=== PATIENT | female | born 1960 | race Two or more races ===

== ENCOUNTER 2018-11-14 23:16 | Emergency (ER) | payer MEDICARE ==
[~2018-11-14] VITALS: Ht 157.5 cm; Wt 90.7 kg
[2018-11-14 23:45] VITALS: BP 134/44
[2018-11-15] MEDS ORDERED: methylPREDNISolone SOD SUCC 125 MG/2 ML VL IM ONE (01:00)
== END 2018-11-15 01:42 | disposition home or self-care (01) ==
LOC: ER 23:16
DX: B02.9 Zoster without complications (principal)
CPT/HCPCS: 96372; 99283; J2930

== ENCOUNTER 2019-09-25 19:12 | Emergency (ER) | payer MEDICARE, MEDICAID ==
[~2019-09-25] VITALS: Ht 157.5 cm; Wt 86.2 kg
[2019-09-25] MEDS ORDERED: HYDROcodone-ACET 10/325MG TAB PO ONE (21:15)
[2019-09-25] MEDS ORDERED: BACLOFEN 10 MG TAB PO ONE (21:15)
[2019-09-25] MEDS ORDERED: LACTULOSE 20Gm/30ML SOLN PO ONE (21:30)
[2019-09-25] MEDS ORDERED: ONDANSETRON ODT 4 MG TAB PO ONE ×2 (22:00→22:15)
[2019-09-25 22:27] VITALS: BP 138/69
== END 2019-09-25 22:45 | disposition home or self-care (01) ==
LOC: EDBD 19:12 → ER 19:14
DX: M25.532 Pain in left wrist (principal); M62.838 Other muscle spasm; M25.562 Pain in left knee; K59.00 Constipation, unspecified; M54.5 Low back pain; M54.2 Cervicalgia; R51 Headache; W01.0XXA Fall on same level from slipping, tripping and stumbling without subsequent striking against object, initial encounter; Y93.89 Activity, other specified; Y92.89 Other specified places as the place of occurrence of the external cause; Y99.8 Other external cause status
CPT/HCPCS: 72040; 72100; 73100; 73562; 99284; Q0162

== ENCOUNTER 2020-09-07 20:00 | Emergency (ER) | payer MEDICAID, MEDICARE, OTHER ==
[~2020-09-07] VITALS: Ht 157.5 cm; Wt 95.3 kg
[2020-09-07 20:41] VITALS: BP 135/52
== END 2020-09-07 21:53 | disposition home or self-care (01) ==
LOC: ER 20:01
DX: J20.9 Acute bronchitis, unspecified (principal); Z20.828 Contact with and (suspected) exposure to other viral communicable diseases; Z87.891 Personal history of nicotine dependence; Z98.51 Tubal ligation status
CPT/HCPCS: 36415; 71045; 87426; 99284; U0003

== ENCOUNTER 2020-10-14 13:16 | Emergency (ER) | payer OTHER | END 2020-10-14 13:50 | disposition left against medical advice (07) | LOC: ER 13:16 | DX: R05 Cough (principal); Z53.21 Procedure and treatment not carried out due to patient leaving prior to being seen by health care provider ==

== ENCOUNTER 2022-01-31 07:01 | Emergency (ER) | payer OTHER ==
[~2022-01-31] VITALS: Ht 157.5 cm; Wt 90.7 kg
[2022-01-31 07:43] VITALS: BP 146/50
[2022-01-31] MEDS ORDERED: AZIT500T PO (07:47)
[2022-01-31] MEDS ORDERED: PROM1SOL4 PO (07:47)
== END 2022-01-31 07:57 | disposition home or self-care (01) ==
LOC: ER 07:01
DX: J02.9 Acute pharyngitis, unspecified (principal); J06.9 Acute upper respiratory infection, unspecified; Z87.891 Personal history of nicotine dependence
CPT/HCPCS: 71046

== ENCOUNTER 2022-03-17 19:58 | Emergency (ER) | payer OTHER ==
[~2022-03-17] VITALS: Ht 157.5 cm; Wt 95.3 kg
[~2022-03-17 19:58] MED LIST: AZIT500T PO; PROM1SOL4 PO
[2022-03-17 19:59] VITALS: BP 137/52
== END 2022-03-18 03:13 | disposition left against medical advice (07) ==
LOC: ER 19:58
DX: R05.9 Cough, unspecified (principal); R09.82 Postnasal drip; Z53.21 Procedure and treatment not carried out due to patient leaving prior to being seen by health care provider

== ENCOUNTER 2022-09-12 07:05 | Emergency (ER) | payer OTHER ==
[~2022-09-12] VITALS: Ht 157.5 cm; Wt 95.5 kg
[2022-09-12 07:18] VITALS: BP 148/56
[2022-09-12 07:55] LABS: Basophils # (auto) 0 10 ^3/uL (0-0.2); Basophils % (auto) 0.6 % (0.0-2.0); Eosinophils # (auto) 0.2 10 ^3/uL (0-0.8); Eosinophils % (auto) 2.9 % (0.0-7.0); Hematocrit 40.9 % (36.0-46.0); Hemoglobin 13.9 g/dL (12.2-16.2); Lymphocytes # (auto) 1.6 10 ^3/uL (0.4-5.4); Lymphocytes % (auto) 31.2 % (10.0-50.0); Mean Corpuscular Hemoglobin 31.6 pg (28.0-32.0); Monocytes # (auto) 0.3 10 ^3/uL (0-1.3); Monocytes % (auto) 6.3 % (0.0-12.0); Neutrophils # (auto) 3.1 10 ^3/uL (1.6-8.6); Nucleated Red Blood Cells % 0.1 %; Red Cell Distribution Width 13.1 % (11.8-14.3); White Blood Cell 5.2 10^3/uL (4.4-10.8)
[2022-09-12 08:30] LABS: Albumin 3.8 g/dL (3.4-5.0); Potassium 4.1 mmol/L (3.5-5.1)
[2022-09-12 08:35] LABS: Bilirubin, Total 0.6 mg/dL (0.2-1.0); Total Protein 7.7 g/dL (6.4-8.2)
[2022-09-12] MEDS ORDERED: LEVO-28 PO (09:32)
== END 2022-09-12 10:59 | disposition home or self-care (01) ==
LOC: ER 07:05
DX: J20.9 Acute bronchitis, unspecified (principal); I10 Essential (primary) hypertension; Z90.89 Acquired absence of other organs; Z90.710 Acquired absence of both cervix and uterus; Z87.891 Personal history of nicotine dependence
CPT/HCPCS: 36415; 71046; 80053; 85025; 85379; 93005

== ENCOUNTER 2022-12-01 01:06 | Emergency (ER) | payer OTHER ==
[~2022-12-01] VITALS: Ht 157.5 cm; Wt 95.5 kg
[~2022-12-01 01:06] MED LIST changes: +LEVO-28 PO
[2022-12-01 01:10] VITALS: BP 142/50
[2022-12-01] MEDS ORDERED: DexAMETHasone SOD PHOS 10MG/1ML VIAL INJ IM ONE (03:30)
== END 2022-12-01 03:52 | disposition home or self-care (01) ==
LOC: ER 01:09
DX: B34.9 Viral infection, unspecified (principal); M79.10 Myalgia, unspecified site; I10 Essential (primary) hypertension; Z87.891 Personal history of nicotine dependence; Z90.710 Acquired absence of both cervix and uterus; Z20.822 Contact with and (suspected) exposure to COVID-19; Z98.51 Tubal ligation status; Z88.1 Allergy status to other antibiotic agents
CPT/HCPCS: 36415; 87426; 87804; 96372; 99283; J1100

== ENCOUNTER 2023-01-25 00:47 | Emergency (ER) | payer OTHER ==
[~2023-01-25] VITALS: Ht 157.5 cm; Wt 98.8 kg
[2023-01-25 00:50] VITALS: BP 145/52
[2023-01-25 01:15] LABS: Basophils # (auto) 0 10 ^3/uL (0-0.2); Basophils % (auto) 0.8 % (0.0-2.0); Eosinophils # (auto) 0.3 10 ^3/uL (0-0.8); Eosinophils % (auto) 7.4 % (0.0-7.0); Hematocrit 35.9 % (36.0-46.0); Hemoglobin 12.9 g/dL (12.2-16.2); Lymphocytes # (auto) 1.1 10 ^3/uL (0.4-5.4); Lymphocytes % (auto) 30.1 % (10.0-50.0); Mean Corpuscular Hemoglobin 33.6 pg (28.0-32.0); Mean Corpuscular Hgb Conc. 35.8 g/dL (32.0-36.0); Mean Corpuscular Volume 93.9 fL (80.0-100.0); Monocytes # (auto) 0.4 10 ^3/uL (0-1.3); Monocytes % (auto) 11.1 % (0.0-12.0); Neutrophils # (auto) 1.8 10 ^3/uL (1.6-8.6); Neutrophils % (auto) 50.6 % (37.0-80.0); Nucleated Red Blood Cells % 0.2 %; Red Blood Cells 3.83 10^6/uL (4.0-5.20); White Blood Cell 3.6 10^3/uL (4.4-10.8)
[2023-01-25] MEDS ORDERED: ALBUTEROL SULF 2.5 MG/0.5ML(0.5%) NEB SOLN NEB ONE (01:15)
[2023-01-25] MEDS ORDERED: ALBUTEROL MEDNEB 2.5 mg/3ml NEB ONE (01:31)
[2023-01-25 01:33] LABS: Albumin 3.5 g/dL (3.4-5.0); BUN/Creatinine Ratio 27.5; Calcium 8.4 mg/dL (8.5-10.1)
[2023-01-25 01:42] LABS: Bilirubin, Total 0.3 mg/dL (0.2-1.0); Total Protein 6.6 g/dL (6.4-8.2)
== END 2023-01-25 05:17 | disposition left against medical advice (07) ==
LOC: ER 00:47
DX: R07.89 Other chest pain (principal); R05.9 Cough, unspecified; I10 Essential (primary) hypertension; Z90.710 Acquired absence of both cervix and uterus; Z90.89 Acquired absence of other organs; Z87.891 Personal history of nicotine dependence; Z79.2 Long term (current) use of antibiotics; Z79.899 Other long term (current) drug therapy; Z20.822 Contact with and (suspected) exposure to COVID-19
CPT/HCPCS: 36415; 71045; 80053; 84484; 85025; 87426; 87804; 93005; 94640

== ENCOUNTER 2024-03-01 09:47 | Emergency (ER) | payer OTHER ==
[~2024-03-01] VITALS: Ht 157.5 cm; Wt 99.2 kg
[~2024-03-01 09:47] MED LIST changes: -LEVO-28 PO; +LEVO500T91 PO
[2024-03-01 09:50] VITALS: TEMP 98.1
[2024-03-01 10:23] VITALS: BP 143/46; PULSE 65; RESP 18; O2SAT 97
[2024-03-01] MEDS ORDERED: CICL8SOL21 TOP (12:40)
[2024-03-01] MEDS: KETOROLAC TROMETH 30 MG/ML 1ML VIAL IM ONE (12:48)
== END 2024-03-01 12:42 | disposition home or self-care (01) ==
LOC: ER 09:47
DX: B35.1 Tinea unguium (principal); I10 Essential (primary) hypertension; Z98.51 Tubal ligation status; Z90.710 Acquired absence of both cervix and uterus; Z87.891 Personal history of nicotine dependence
CPT/HCPCS: 96372; 99283; J1885

== ENCOUNTER 2024-05-09 01:53 | Emergency (ER) | payer OTHER ==
[~2024-05-09] VITALS: Ht 157.5 cm; Wt 93.1 kg
[~2024-05-09 01:53] MED LIST changes: +CICL8SOL21 TOP
[2024-05-09 03:00] VITALS: BP 136/108; RESP 18; O2SAT 97
[2024-05-09 03:06] VITALS: PULSE 60
[2024-05-09] MEDS ORDERED: ZOFR4T PO (04:37)
[2024-05-09] MEDS ORDERED: HYDR-4902 PO (04:37)
[2024-05-09] MEDS: DexAMETHasone SOD PHOS 10MG/1ML VIAL INJ IM ONE (05:20)
[2024-05-09] MEDS: HYDROcodone-ACET 5/325MG TAB PO ONE (05:21)
[2024-05-09] MEDS: ONDANSETRON ODT 4 MG TAB PO ONE (05:21)
== END 2024-05-09 06:20 | disposition home or self-care (01) ==
LOC: ER 01:53
DX: M54.2 Cervicalgia (principal); M62.830 Muscle spasm of back; I10 Essential (primary) hypertension; Z90.710 Acquired absence of both cervix and uterus; Z98.51 Tubal ligation status; Z87.891 Personal history of nicotine dependence
CPT/HCPCS: 72040; 72070; 93005; 96372; 99284; J1100; Q0162

== ENCOUNTER 2025-04-23 09:02 | Emergency (ER) | payer OTHER, MEDICAID ==
[~2025-04-23] VITALS: Ht 157.5 cm; Wt 90.4 kg
[~2025-04-23 09:02] MED LIST changes: +HYDR-4902 PO; +ZOFR4T PO
--- NOTE | 2025-04-23 09:15 | ECG ---
[facility] Test Date: 2025-04-23 Test Time: 09:13:32 Pat Name: SAYDA WIGGINS Department: ER Room: Gender: F Medical Record Coder: AMELIE : 1960 Requested By: SUKI WEST Order Number: [id number] Reading MD: Bk Muse Measurements Intervals [place] Rate: 62 P: 49 AL: 149 QRS: 55 QRSD: 83 T: 37 QT: 406 QTc: 413 Interpretive Statements Sinus rhythm Low voltage, precordial leads Electronically Signed On 04-25-2025 12:06:52 PDT by Bk Muse Please click the below link to view image of tracing.
--- NOTE | 2025-04-23 09:45 | ED.PDOC ---
History of Present Illness HPI Comments 64-year-old female presents to the ER with prior medical history of hypertension; surgical history of BTL, hysterectomy, tonsillectomy in the chief complaint of chest pain. Patient reports on having aching chest pain with shortness a breath for the past seven days, patient notes on the chest pain worsening on the right side than left side. Patient updates the the left-sided chest pain started today. Denies chills, fever, N/V/D. No other associated symptoms, modifiers, recent injuries or sick contacts present at this time. Chief Complaint: Chest Pain Time Seen by MD: 09:15 Primary Care Provider: NOEMI Reviewed Notes: Nurses Notes, Medications, Allergies Allergies: Coded Allergies: NO KNOWN ALLERGIES (Unverified , 04/20/19) Home Meds Active Scripts Ondansetron Odt 4MG Tab (ZOFRAN PO) 4 Mg Tb, 1 TAB PO Q8HPRN PRN, #10 TAB as needed for nausea vomiting ODT TAB-DISSOLVE IN MOUTH, THEN SWALLOW Prov:CAYLA COHEN MILL CRANE OPERATOR 05/09/24 Hydrocodone-Acetaminophen (Hydrocodone Bitartrate/AC 5-325 mg) 1 Tab Tab, 1 TAB PO Q6HPRN PRN, #10 TAB as needed for pain Prov:CAYLA COHEN MILL CRANE OPERATOR 05/09/24 Ciclopirox (Ciclopirox Nail Lacquer) 8 % Merced, 1 APPLIC TOP BID for 90 Days, #6.6 ML 1 Refill Prov:DANGELO CRUZ MILL CRANE OPERATOR 03/01/24 Levofloxacin Hemihydrate (LEVOFLOXACIN) 500 Mg Tab, 500 MG PO DAILY for 5 Days, #5 MG Prov:SUKI WEST MD 09/12/22 Promethazine-Dm (Promethazine Dm 6.25-15 mg/5Ml) 1 Merced Merced, 1 MERCED PO TID, #150 ML Prov:MARINE ARAMBULA 01/31/22 Azithromycin (Zithromax) 500 Mg Tab, 500 MG PO DAILY for 5 Days, #5 TAB Prov:MARINE ARAMBULA 01/31/22 Information Source: Patient Mode of Arrival: Ambulatory Severity: Moderate Timing: Days Duration: Since onset, Days Prehospital treatment: None Past Medical History PAST MEDICAL HISTORY: HTN Surgical History: BTL, Hysterectomy, Tonsillectomy SCOUTS History: No Pertinent SCOUTS History Family History Family History: Reviewed,noncontributory to illness, Unknown Social History Smoker: Quit Greater Than 1 Year Alcohol: Unknown Drugs: Denies Drug Use Lives In: Home Constitutional: denies: chills, diaphoresis, fatigue, fever, malaise, sweats, weakness, others EENTM: denies: blurred vision, double vision, ear bleeding, ear discharge, ear drainage, ear pain, ear ringing, eye pain, eye redness, hearing loss, mouth pain, mouth swelling, nasal discharge, nose bleeding, nose congestion, nose pain, photophobia, tearing, throat pain, throat swelling, voice changes, others Respiratory: reports: shortness of breath; denies: cough, hemoptysis, orthopnea, SOB at rest, SOB with excertion, stridor, wheezing, others Cardiovascular: reports: chest pain; denies: dizzy spells, diaphoresis, Dyspnea on exertion, edema, irregular heart beat, left arm pain, lightheadedness, palpitations, PND, syncope, others Gastrointestinal: denies: abdomen distended, abdominal pain, blood streaked bowels, constipated, diarrhea, dysphagia, difficulty swallowing, hematemesis, melena, nausea, poor appetite, poor fluid intake, rectal bleeding, rectal pain, vomiting, others Genitourinary: denies: abnormal vagina bleeding, burning, dyspareunia, dysuria, flank pain, frequency, hematuria, incontinence, pain, , vagina discharge, urgency, others Neurological: denies: dizziness, fainting, headache, left sided numbness, left sided weakness, numbness, paresthesia, pre-existing deficit, right sided numbness, right sided weakness, seizure, speech problems, tingling, tremors, weakness, others Musculoskeletal: denies: back pain, gout, joint pain, joint swelling, muscle pain, muscle stiffness, neck pain, others Integumetry: denies: bruises, change in color, change in hair/nails, dryness, laceration, lesions, lumps, rash, wounds, others Allergic/Immunocompromised: denies: Difficulty Healing, Frequent Infections, Hives, Itching, others Hematologic/Lymphatic: denies: anemia, blood clots, easy bleeding, easy bruising, swollen glands, others Endocrine: denies: excessive hunger, excessive sweating, excessive thirst, excessive urination, flushing, intolerance to cold, intolerance to heat, unexplained weight gain, unexplained weight loss, others Psychiatric: denies: anxiety, bipolar disorder, depression, hopeless, panic disorder, schizophrenia, sleepless, suicidal, others All Other Systems: Reviewed and Negative Physical Exam General Appearance: Moderate Distress, Normal HEENT: Normal ENT Inspection, Pharynx Normal, TMs Normal Neck: Full Range of Motion, Non-Tender, Normal, Normal Inspection Respiratory: Chest Non-Tender, Lungs Clear, No Accessory Muscle Use, No Respiratory Distress, Normal Breath Sounds Cardiovascular: No Edema, No JVD, No Murmur, No Gallop, Normal Peripheral Pul ses, Regular Rate/Rhythm Breast Exam: Deferred Gastrointestinal: No Organomegaly, Non Tender, No Pulsatile Mass, Normal Bowel Sounds, Soft Genitalia: Deferred Pelvic: Deferred Rectal: Deferred Extremities: No calf tenderness, Normal capillary refill, Normal inspection, Normal range of motion, Non-tender, No pedal edema Musculoskeletal : Apperance: Normal Neurologic: Alert, lapel baster II-XII nml as Tested, No Motor Deficits, Normal Affect, Normal Mood, No Sensory Deficits Cerebellar Function: Normal Reflexes: Normal Skin: Dry, Normal Color, Warm Peripheral Pulses: 3+ Radial (R), 3+ Radial (L) Lymphatic: No Adenopathy Was a procedure done? Was a procedure done?: No EKG EKG : Pulse Rate (adult): 62 Topaz: Normal Cardiac Rhythm: NSR Block: None Hypertrophy: None ST: Normal Differential Dx Considerations may include: Electrolyte imbalance X-Ray, Labs, Meds, VS Vital Signs Date Time Temp Pulse Resp B/P (MAP) Pulse Ox O2 Delivery O2 Flow Rate FiO2 04/23/25 11:08 60 04/23/25 10:39 98.1 60 18 149/53 (85) 97 98.1 04/23/25 10:39 60 04/23/25 09:45 62 04/23/25 09:37 99.8 67 18 151/71 (97) 98 99.8 04/23/25 09:13 62 Lab Test 04/23/25 10:15 04/23/25 09:20 Range/Units Troponin I High Sensitivity < 3 L < 3 L </=34 ng/L [facility] [address] [facility] [address] Ph: [phone] DIAGNOSTIC IMAGING Diagnostic Imaging Report : [id number] Signed PATIENT: SAYDA WIGGINS ACCT: [id number] UNIT: [id number] : 1960 LOC: ER ROOM / BED: / AGE / SEX: 64 / F ADM STATUS: REG ER SERVICE 1034 ORDERING PHYSICIAN: SUKI WEST MD PROCEDURE(s): CXRP - CHEST PORTABLE REASON: cough ORDER NUMBER(s): [id number], ACCESSION NUMBER(s): [id number] XY CHEST PORTABLE, HISTORY: cough COMPARISON: EKG on DOS: 09/12/22, CHEST PORTABLE on DOS: 09/07/20 EKG on DOS: 09/12/22, CHEST PORTABLE on DOS: 09/07/20 TECHNICAL DATA: 1 view of the chest was obtained. FINDINGS: Lines and tubes: None Cardiomediastinal silhouette: normal Pulmonary vasculature: normal Lung expansion: normal Lung airspace: normal Lung interstitium: normal Pleura: normal Pneumothorax: no Bones: Unremarkable Other: no IMPRESSION: No acute intrathoracic abnormality. ATED BY: ZACH BERNAL MD DICTATED DATE/TIME: 04/23/251103 SIGNED BY: ZACH BERNAL MD SIGNED DATE/TIME: 04/23/25 110 CC: Patient alert. Complaining of chest discomfort. Vitals stable. Answering all questions. Chest x-ray reviewed does not show any acute changes. Mild inflammation. Possible pneumonitis. Was given prescription of amoxicillin antibiotic. EKG reviewed does not show any acute changes. Cardiac marker within normal limits. Explained to the patient her results. Was told to follow up with her primary care physician. Was told to come back if there is any problem. Time of 1ST Reevaluation: 09:45 Reevaluation 1ST: Improved Time of 2ND Reevaluation: 12:01 Reevaluation 2ND: Improved Patient Education/Counseling: Diagnosis, Treatment, Prognosis Family Education/Counseling: No Family Present Departure 1 Departure Time of Disposition: 12:02 Impression: Primary Impression: Pneumonitis Additional Impression: Musculoskeletal chest pain Disposition: 01 HOME / SELF CARE / HOMELESS Condition: Good e-Prescriptions Amoxicillin Trihydrate (Amoxicillin) 500 Mg Cap 1 CAP PO TID for 5 Days, #15 CAP Prov: SUKI WEST MD 04/23/25 Discharged With: Self Critical Care Note Critical Care Time?: No Stability Stability form required: No I personally scribed for SUKI WEST MD ([email or web address]) on 04/23/25 at 09:45. Electronically submitted by Sumit Benavides ([facility] ([facility]). I personally scribed for SUKI WEST MD ([email or web address]) on 04/23/25 at 11:12. Electronically submitted by Sumit Benavides ([facility] ([facility]). SUKI WEST MD April 23, 2025 09:45
--- NOTE | 2025-04-23 11:07 | DVH ---
XY CHEST PORTABLE, HISTORY: cough COMPARISON: EKG on DOS: 09/12/22, CHEST PORTABLE on DOS: 09/07/20 EKG on DOS: 09/12/22, CHEST PORTABLE on DOS: 09/07/20 TECHNICAL DATA: 1 view of the chest was obtained. FINDINGS: Lines and tubes: None Cardiomediastinal silhouette: normal Pulmonary vasculature: normal Lung expansion: normal Lung airspace: normal Lung interstitium: normal Pleura: normal Pneumothorax: no Bones: Unremarkable Other: no IMPRESSION: No acute intrathoracic abnormality.
[2025-04-23] MEDS ORDERED: AMOX500C2 PO (12:03)
[2025-04-23 12:11] VITALS: BP 110/65; PULSE 66; RESP 16; TEMP 98.2; O2SAT 98
--- NOTE | 2025-04-24 07:52 | ECG ---
[facility] Test Date: 2025-04-23 Test Time: 11:08:09 Pat Name: SAYDA WIGGINS Department: ER Room: Gender: F Advertising Material Distributor: AMELIE : 1960 Requested By: SUKI WEST Order Number: [id number] Reading MD: Bk Muse Measurements Intervals [place] Rate: 60 P: 64 [place]: 156 QRS: 57 QRSD: 83 T: 37 QT: 415 QTc: 415 Interpretive Statements Sinus rhythm Low voltage, precordial leads Electronically Signed On 04-25-2025 12:07:46 PDT by Bk Muse Please click the below link to view image of tracing.
== END 2025-04-23 12:13 | disposition home or self-care (01) ==
LOC: ER 09:02
DX: J18.9 Pneumonia, unspecified organism (principal); R07.89 Other chest pain; I10 Essential (primary) hypertension; Z90.710 Acquired absence of both cervix and uterus; Z90.89 Acquired absence of other organs; Z98.890 Other specified postprocedural states
CPT/HCPCS: 36415; 71045; 84484; 93005

== ENCOUNTER 2025-06-27 03:49 | Emergency (ER) | payer OTHER, MEDICAID ==
[~2025-06-27] VITALS: Ht 157.5 cm; Wt 98.0 kg
[~2025-06-27 03:49] MED LIST changes: +AMOX500C2 PO
[2025-06-27 04:00] VITALS: BP 147/79; PULSE 63; RESP 16; TEMP 98.1; O2SAT 97
--- NOTE | 2025-06-27 04:00 | ED.PDOC ---
Back pain HPI HPI Comments pt reports to ed w/cc of rt foot pain x 2 days. pt reports accidentally kicking her wall. on assessment foot is bruised. pt denies any numbness/ tingling. pulses present, brisk cap refill. pt a&ox4, vss, rr even and unlabored on ra Time Seen by MD: 03:53 Primary Care Provider: NOEMI Larios Notes: Nurses Notes, Medications, Allergies Allergies: Coded Allergies: NO KNOWN ALLERGIES (Unverified , 04/20/19) Home Meds Active Scripts Amoxicillin Trihydrate (Amoxicillin) 500 Mg Cap, 1 CAP PO TID for 5 Days, #15 CAP Prov:SUKI WEST MD 04/23/25 Ondansetron Odt 4MG Tab (ZOFRAN PO) 4 Mg Tb, 1 TAB PO Q8HPRN PRN, #10 TAB as needed for nausea vomiting ODT TAB-DISSOLVE IN MOUTH, THEN SWALLOW Prov:CAYLA COHEN Q ACTUARIAL INTERN 05/09/24 Hydrocodone-Acetaminophen (Hydrocodone Bitartrate/AC 5-325 mg) 1 Tab Tab, 1 TAB PO Q6HPRN PRN, #10 TAB as needed for pain Prov:CAYLA COHEN Q ACTUARIAL INTERN 05/09/24 Ciclopirox (Ciclopirox Nail Lacquer) 8 % [place], 1 APPLIC TOP BID for 90 Days, #6.6 ML 1 Refill Prov:DANGELO CRUZ ACTUARIAL INTERN 03/01/24 Levofloxacin Hemihydrate (LEVOFLOXACIN) 500 Mg Tab, 500 MG PO DAILY for 5 Days, #5 MG Prov:SUKI WETS MD 09/12/22 Promethazine-Dm (Promethazine Dm 6.25-15 mg/5Ml) 1 Merced Merced, 1 MERCED PO TID, #150 ML Prov:MARINE ARAMBULA 01/31/22 Azithromycin (Zithromax) 500 Mg Tab, 500 MG PO DAILY for 5 Days, #5 TAB Prov:MARINE ARAMBULA 01/31/22 Information Source: Patient Past Medical History PAST MEDICAL HISTORY: HTN Surgical History: BTL, Hysterectomy, Tonsillectomy CUSTODIAN History: No Pertinent CUSTODIAN History Family History Family History: Reviewed,noncontributory to illness, Unknown Social History Smoker: Quit Greater Than 1 Year Alcohol: Unknown Drugs: Denies Drug Use Lives In: Home Constitutional: denies: chills, diaphoresis, fatigue, fever, malaise, sweats, weakness, others EENTM: denies: blurred vision, double vision, ear bleeding, ear discharge, ear drainage, ear pain, ear ringing, eye pain, eye redness, hearing loss, mouth pain, mouth swelling, nasal discharge, nose bleeding, nose congestion, nose pain, photophobia, tearing, throat pain, throat swelling, voice changes, others Respiratory: denies: cough, hemoptysis, orthopnea, SOB at rest, shortness of breath, SOB with excertion, stridor, wheezing, others Cardiovascular: denies: chest pain, dizzy spells, diaphoresis, Dyspnea on exertion, edema, irregular heart beat, left arm pain, lightheadedness, palpitations, PND, syncope, others Gastrointestinal: denies: abdomen distended, abdominal pain, blood streaked bowels, constipated, diarrhea, dysphagia, difficulty swallowing, hematemesis, melena, nausea, poor appetite, poor fluid intake, rectal bleeding, rectal pain, vomiting, others Genitourinary: denies: abnormal vagina bleeding, burning, dyspareunia, dysuria, flank pain, frequency, hematuria, incontinence, pain, , vagina discharge, urgency, others Neurological: denies: dizziness, fainting, headache, left sided numbness, left sided weakness, numbness, paresthesia, pre-existing deficit, right sided numbness, right sided weakness, seizure, speech problems, tingling, tremors, weakness, others Musculoskeletal: reports: joint pain, joint swelling; denies: back pain, gout, muscle pain, muscle stiffness, neck pain, others Integumetry: denies: bruises, change in color, change in hair/nails, dryness, laceration, lesions, lumps, rash, wounds, others Allergic/Immunocompromised: denies: Difficulty Healing, Frequent Infections, Hives, Itching, others Hematologic/Lymphatic: denies: anemia, blood clots, easy bleeding, easy bruising, swollen glands, others Endocrine: denies: excessive hunger, excessive sweating, excessive thirst, excessive urination, flushing, intolerance to cold, intolerance to heat, unexplained weight gain, unexplained weight loss, others Psychiatric: denies: anxiety, bipolar disorder, depression, hopeless, panic disorder, schizophrenia, sleepless, suicidal, others Physical Exam General Appearance: No Apparent Distress, Normal HEENT: Pharynx Normal Neck: Full Range of Motion Respiratory: Lungs Clear, No Respiratory Distress, Normal Breath Sounds Cardiovascular: No Murmur, Normal Peripheral Pulses, Regular Rate/Rhythm Breast Exam: Deferred Gastrointestinal: Non Tender, Soft Genitalia: Deferred Pelvic: Deferred Rectal: Deferred Extremities: No calf tenderness, Normal capillary refill, Normal inspection, Normal range of motion, Non-tender, No pedal edema Musculoskeletal : Location: Right Extremity Location: Foot (Mild to moderate edema and ecchymosis dorsal aspect into 5th digit sensory motion intact positive pedal pulse no noted abrasions lacerations or open lesions) Apperance: Normal Neurologic: Alert, No Motor Deficits, Normal Affect, Normal Mood, No Sensory Deficits Cerebellar Function: Normal Reflexes: NOT DONE Skin: Dry, Normal Color, Warm Lymphatic: No Adenopathy Was a procedure done? Was a procedure done?: No Back Pain Differential Dx Differential Diagnosis: Fracture, Musculoskeletal Pain, Strain X-Ray, Labs, Meds, VS Vital Signs Date Time Temp Pulse Resp B/P (MAP) Pulse Ox O2 Delivery O2 Flow Rate FiO2 06/27/25 04:00 98.1 63 16 147/79 (101) 97 98.1 X-Ray, Labs, Meds, VS Comment Right foot x-ray shows no acute fractures or osseous lesions or dislocations. Likely contusion. Advised to continue with the ibuprofen 800 as prescribed. Discussed rice. Advised to follow up with her PCP in 2-3 days as necessary consider further imaging such as MRI if symptoms persist. ER return precautions given patient indicates understanding agrees with discharge plan of care. Time of 1ST Reevaluation: 04:00 Reevaluation 1ST: Unchanged Time of 2ND Reevaluation: 05:37 Reevaluation 2ND: Improved Patient Education/Counseling: Diagnosis, Treatment, Prognosis, Need For Follow Up Family Education/Counseling: No Family Present SEPSIS Sepsis Screen Physician Orders R Foot 3 View Xray (06/27/25 04:03) Vital Signs Date Time Temp Pulse Resp B/P (MAP) Pulse Ox O2 Delivery O2 Flow Rate FiO2 06/27/25 04:00 98.1 63 16 147/79 (101) 97 98.1 Departure 1 Departure Time of Disposition: 05:36 Impression: Primary Impression: Contusion of right foot, initial encounter Disposition: HOME / SELF CARE / HOMELESS Condition: Stable Discharged With: Self Critical Care Note Critical Care Time?: No Stability Stability form required: SUSIE Chilel Jun 27, 2025 04:00
--- NOTE | 2025-06-27 05:34 | DVH ---
EXAM: XY R FOOT 3 VIEW XRAY HISTORY: Injury to 5th digit COMPARISON: None TECHNIQUE: Three views of the right foot were performed. FINDINGS: No acute fracture or dislocation are identified about the right foot. No significant degenerative laurel nges. Heel spur. IMPRESSION: 1. No acute fracture or dislocation of the right foot.
== END 2025-06-27 05:59 | disposition home or self-care (01) ==
LOC: ER 03:49
DX: S90.31XA Contusion of right foot, initial encounter (principal); I10 Essential (primary) hypertension; Z90.710 Acquired absence of both cervix and uterus; W22.01XA Walked into wall, initial encounter; Y93.9 Activity, unspecified; Y92.89 Other specified places as the place of occurrence of the external cause; Y99.8 Other external cause status
CPT/HCPCS: 73630

== ENCOUNTER 2025-09-13 08:16 | Emergency (ER) | payer OTHER, MEDICAID ==
[~2025-09-13] VITALS: Ht 157.5 cm; Wt 96.5 kg
--- NOTE | 2025-09-13 08:36 | ED.PDOC ---
Musculoskeletal HPI Comments 65-year-old female presents to the ER with a chief complaint of right thumb pain located to the MCP. Patient reports that she had a sudden onset of pain which is radiating up the wrist since yesterday of 09/12/2025. Patient currently has a 7/10 on the pain scale. Patient did take hyau-jon-couptbo medications with a mild relief. Denies any other symptoms at this time. Chief Complaint: Upper Extremity Time Seen by MD: 08:30 Primary Care Provider: NOEMI Larios Notes: Nurses Notes, Medications, Allergies Allergies: Coded Allergies: NO KNOWN ALLERGIES (Unverified , 04/20/19) Home Meds Active Scripts Amoxicillin Trihydrate (Amoxicillin) 500 Mg Cap, 1 CAP PO TID for 5 Days, #15 CAP Prov:SUKI WEST MD 04/23/25 Ondansetron Odt 4MG Tab (ZOFRAN PO) 4 Mg Tb, 1 TAB PO Q8HPRN PRN, #10 TAB as needed for nausea vomiting ODT TAB-DISSOLVE IN MOUTH, THEN SWALLOW Prov:CAYLA COHEN GUIDE CHANGER 05/09/24 Hydrocodone-Acetaminophen (Hydrocodone Bitartrate/AC 5-325 mg) 1 Tab Tab, 1 TAB PO Q6HPRN PRN, #10 TAB as needed for pain Prov:CAYLA COHEN GUIDE CHANGER 05/09/24 Ciclopirox (Ciclopirox Nail Lacquer) 8 % Merced, 1 APPLIC TOP BID for 90 Days, #6.6 ML 1 Refill Prov:DANGELO CRUZ GUIDE CHANGER 03/01/24 Levofloxacin Hemihydrate (LEVOFLOXACIN) 500 Mg Tab, 500 MG PO DAILY for 5 Days, #5 MG Prov:SUKI WEST MD 09/12/22 Promethazine-Dm (Promethazine Dm 6.25-15 mg/5Ml) 1 Merced Merced, 1 MERCED PO TID, #150 ML Prov:MARINE ARAMBULA 01/31/22 Azithromycin (Zithromax) 500 Mg Tab, 500 MG PO DAILY for 5 Days, #5 TAB Prov:MARINE ARAMBULA 01/31/22 Information Source: Patient Mode of Arrival: Ambulatory Location: Right Extremity Location: Thumb Timing: Hours Prehospital treatment: None Severity: Moderate Able to Move Extremity: No Bear Weight: Limited Pain: Moderate Hand Dominance: Right Mechanism: Spontaneous Circumstances: Spontaneous Onset of Symptoms: Spontaneous Symptoms: Pain DVT Risk Factors: NONE Associated signs and symptoms: None Past Medical History PAST MEDICAL HISTORY: HTN Surgical History: BTL, Hysterectomy, Tonsillectomy WHARF HAND History: No Pertinent WHARF HAND History Family History Family History: Reviewed,noncontributory to illness, Unknown Social History Smoker: Quit Greater Than 1 Year Alcohol: Unknown Drugs: Denies Drug Use Lives In: Home Constitutional: denies: chills, diaphoresis, fatigue, fever, malaise, sweats, weakness, others EENTM: denies: blurred vision, double vision, ear bleeding, ear discharge, ear drainage, ear pain, ear ringing, eye pain, eye redness, hearing loss, mouth pain, mouth swelling, nasal discharge, nose bleeding, nose congestion, nose pain, photophobia, tearing, throat pain, throat swelling, voice changes, others Respiratory: denies: cough, hemoptysis, orthopnea, SOB at rest, shortness of breath, SOB with excertion, stridor, wheezing, others Cardiovascular: denies: chest pain, dizzy spells, diaphoresis, Dyspnea on exertion, edema, irregular heart beat, left arm pain, lightheadedness, palpitations, PND, syncope, others Gastrointestinal: denies: abdomen distended, abdominal pain, blood streaked bowels, constipated, diarrhea, dysphagia, difficulty swallowing, hematemesis, melena, nausea, poor appetite, poor fluid intake, rectal bleeding, rectal pain, vomiting, others Genitourinary: denies: abnormal vagina bleeding, burning, dyspareunia, dysuria, flank pain, frequency, hematuria, incontinence, pain, , vagina discharge, urgency, others Neurological: denies: dizziness, fainting, headache, left sided numbness, left sided weakness, numbness, paresthesia, pre-existing deficit, right sided numbness, right sided weakness, seizure, speech problems, tingling, tremors, weakness, others Musculoskeletal: reports: others (Right finger pain); denies: back pain, gout, joint pain, joint swelling, muscle pain, muscle stiffness, neck pain Integumetry: denies: bruises, change in color, change in hair/nails, dryness, laceration, lesions, lumps, rash, wounds, others Allergic/Immunocompromised: denies: Difficulty Healing, Frequent Infections, Hives, Itching, others Hematologic/Lymphatic: denies: anemia, blood clots, easy bleeding, easy bruising, swollen glands, others Endocrine: denies: excessive hunger, excessive sweating, excessive thirst, excessive urination, flushing, intolerance to cold, intolerance to heat, unexplained weight gain, unexplained weight loss, others Psychiatric: denies: anxiety, bipolar disorder, depression, hopeless, panic disorder, schizophrenia, sleepless, suicidal, others All Other Systems: Reviewed and Negative Physical Exam Exam Comments Swelling to the right phalangeal joint range, normal range of motion, localized TTP to the volar aspect of the 1st MCP, no erythema, there is a palpable lump, tender to palpation, neurovascular sensation intact. General Appearance: No Apparent Distress, Normal HEENT: Normal ENT Inspection, Pharynx Normal, TMs Normal Neck: Full Range of Motion, Non-Tender, Normal, Normal Inspection Respiratory: Chest Non-Tender, Lungs Clear, No Accessory Muscle Use, No Respiratory Distress, Normal Breath Sounds Cardiovascular: No Edema, No JVD, No Murmur, No Gallop, Normal Peripheral Pulses, Regular Rate/Rhythm Breast Exam: Deferred Gastrointestinal: No Organomegaly, Non Tender, No Pulsatile Mass, Normal Bowel Sounds, Soft Genitalia: Deferred Pelvic: Deferred Rectal: Deferred Extremities: No calf tenderness, Normal capillary refill, Normal inspection, Normal range of motion, Non-tender, No pedal edema Musculoskeletal : Apperance: Normal Neurologic: Alert, interface control officer II-XII nml as Tested, No Motor Deficits, Normal Affect, Normal Mood, No Sensory Deficits Cerebellar Function: Normal Reflexes: Normal Skin: Dry, Normal Color, Warm Lymphatic: No Adenopathy Was a procedure done? Was a procedure done?: No Differential Diagnosis EXT Differential Diagnosis: Sprain, Arthritis X-Ray, Labs, Meds, VS Vital Signs Date Time Temp Pulse Resp B/P (MAP) Pulse Ox O2 Delivery O2 Flow Rate FiO2 09/13/25 10:41 62 17 98 Room Air 09/13/25 10:41 98.0 62 16 142/97 (112) 98 98.0 09/13/25 08:17 97.5 66 18 155/108 97 97.5 X-Ray, Labs, Meds, VS Comment 65-year-old female presents to the ER with a chief complaint of right thumb pain. Patient arrives alert and oriented, ABC's intact, afebrile, vital signs stable, saturating well in room air Diagnostic imaging ordered by me and results interpreted by radiology : X-ray to the right hand History and examination consistent w/ MSK injury X-rays ordered, read by radiologist and reviewed by me. Imaging shows no acute findings There are no signs of arterial or nerve damage Take IBU or OTC Tylenol w/ food as needed for pain Recommended heat therapy Reviewed RICE management On reevaluation, patient had symptomatic improvement. Patient is stable for discharge at this time. External notes reviewed. Test results and diagnostic imaging interpreted. All diagnostic findings, discharge care, education and instructions provided Follow-up with PCP in 2 to 3 days Patient verbalized understanding and agreed to treatment plan Vital signs stable, afebrile, no acute distress noted Patient ambulatory with strong steady gait Advised to return precautions for any new or worsening symptoms, return to ER immediately for re-evaluation Patient is aware that the purpose of this visit was for an acute medical emergency requiring emergent stabilization. Chronic conditions, including malignancies have not been ruled out. Patient is instructed to follow up with PCP as directed and discharge instructions for continued care and workup. If unable to arrange follow-up, patient is to return to the emergency department for reassessment. Patient (parent or legal guardian if applicable) was given verbal and written discharge instructions and acknowledges understanding. Additional MDM Review of External, Non-ED records: External records reviewed. Discussion with independent historian (EMS, family) history obtained from the patient/parents (if applicable) at bedside Chronic conditions affecting care: None Social determinants of health affecting care: None Consideration of admission (observation or admission): I considered escalation of care to admission for this patient, however given the reassuring workup, the patient is safe for outpatient management. Discussion with the Radiology: No Tests considered but not performed: Prescription medication considered but not given: 12 lead EKG interpretation: Time of 1ST Reevaluation: 09:00 Reevaluation 1ST: Unchanged Patient Education/Counseling: Diagnosis, Treatment, Prognosis Family Education/Counseling: No Family Present Departure 1 Departure Time of Disposition: 10:35 Impression: Primary Impression: Thumb pain Qualified Codes: M79.644 - Pain in right finger(s) Disposition: 01 HOME / SELF CARE / HOMELESS Condition: Stable Discharged With: Self Critical Care Note Critical Care Time?: No Stability Stability form required: No Heart Score Heart Score: Heart Score Response (Comments) Value History N/A 0 EKG N/A 0 Age N/A 0 Risk Factors N/A 0 Troponin N/A 0 Total 0 I personally scribed for DANGELO CRUZ NP ([email or web address]) on 09/13/25 at 08:36. Electronically submitted by Sumit Benavides ([email or web address]). DANGELO CRUZ NP Sep 13, 2025 08:36
--- NOTE | 2025-09-13 09:04 | DVH ---
XY R HAND 3 VIEW XRAY, INDICATION: Thumb pain TECHNICAL DATA: Frontal, oblique and lateral views were obtained of the right hand. COMPARISON: None FINDINGS: No fracture is identified. Joint spaces are maintained. Alignment is anatomic. Soft tissues are withi n normal limits. IMPRESSION: No acute fracture or dislocation of the right hand.
[2025-09-13 10:41] VITALS: BP 142/97; PULSE 62; RESP 17; TEMP 98; O2SAT 98
== END 2025-09-13 10:43 | disposition home or self-care (01) ==
LOC: ER 08:18
DX: M79.644 Pain in right finger(s) (principal); I10 Essential (primary) hypertension; Z90.710 Acquired absence of both cervix and uterus; Z79.899 Other long term (current) drug therapy
CPT/HCPCS: 73130